=== PATIENT | male | born 1980 | race Hispanic/Latino ===

== ENCOUNTER 2016-12-19 21:20 | Emergency (ER) | payer BC ==
[2016-12-19 21:44] VITALS: BP 168/109; PULSE 112; RESP 20; TEMP 98.2; O2SAT 96
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
[2016-12-20] MEDS ORDERED: Lidocaine 1% Inj (20ml) ONE (00:26)
[2016-12-20] MEDS ORDERED: Povidone Iodine Topical 10% Sol ONE (00:49)
[2016-12-20] MEDS ORDERED: Povidone Iodine Oint 10% Foilpak UD ONE (00:50)
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
== END 2016-12-20 01:17 | disposition home or self-care (01) ==
LOC: H.ER 21:20
DX: S01.112A Laceration without foreign body of left eyelid and periocular area, initial encounter (principal); Y04.0XXA Assault by unarmed brawl or fight, initial encounter; K57.92 Diverticulitis of intestine, part unspecified, without perforation or abscess without bleeding